=== PATIENT | male | born 1950 | race Caucasian/White ===

== ENCOUNTER → 2019-09-14 | Outpatient (CLI) | payer OTHER ==
[2019-09-14 11:16] LABS: PLATELET COUNT 219 x10^3mcL (130-400); RED CELL DISTRIBUTION WIDTH 13.2 % (11.5-14.5)
[2019-09-14 11:51] LABS: ALBUMIN 4.1 g/dL (3.4-5.0); ALKALINE PHOSPHATASE 115 U/L (46-116); ALT/SGPT 40 U/L (16-63); AST/SGOT 26 U/L (15-37); BILIRUBIN TOTAL 0.6 mg/dL (0.20-1.00); CALCIUM 8.2 mg/dL (8.5-10.1); CARBON DIOXIDE 26.5 mmol/L (21-32); CHLORIDE SERUM 105 mmol/L (98-107); CREATININE SERUM 1.2 mg/dL (0.7-1.3); GFR1 > 60 mL/min; GLUCOSE SERUM 107 mg/dL (74-106); POTASSIUM SERUM 4.1 mmol/L (3.5-5.1); SODIUM SERUM 140 mmol/L (136-145); TOTAL PROTEIN, SERUM 7.5 g/dL (6.4-8.2); TRIGLYCERIDES 54 mg/dL (<150)
[2019-09-14 11:52] LABS: CHOLESTEROL 125 mg/dL (<200); CHOLESTEROL/HDL RATIO 3.7; HDL CHOLESTEROL 34 mg/dL (40-60)
== END | disposition home or self-care (01) ==
LOC: LB 10:52
DX: E78.5 Hyperlipidemia, unspecified (principal)

== ENCOUNTER → 2020-03-14 | Outpatient (CLI) | payer OTHER | END | disposition home or self-care (01) | LOC: RD 11:19 | DX: S89.92XA Unspecified injury of left lower leg, initial encounter (principal); X58.XXXA Exposure to other specified factors, initial encounter; Y92.9 Unspecified place or not applicable ==

== ENCOUNTER → 2020-03-31 | Outpatient (CLI) | payer OTHER | END | disposition home or self-care (01) | LOC: MI 03-30 14:25 | PROC: BQ38ZZZ Magnetic Resonance Imaging (MRI) of Left Knee (ICD-10-PCS; principal; 2020-03-31) | PROC: BQ37ZZZ Magnetic Resonance Imaging (MRI) of Right Knee (ICD-10-PCS; 2020-03-31) | DX: M25.562 Pain in left knee (principal); M25.561 Pain in right knee ==

== ENCOUNTER → 2020-06-14 | Outpatient (CLI) | payer OTHER | END | disposition home or self-care (01) | LOC: LB 15:18 | DX: U07.1 COVID-19 (principal) | CPT/HCPCS: U0003 ==

== ENCOUNTER → 2020-09-20 | Outpatient (CLI) | payer OTHER ==
[2020-09-16 08:57] LABS: CALCIUM 9.4 mg/dL (8.5-10.1); CARBON DIOXIDE 20.6 mmol/L (21-32); CREATININE SERUM 1.3 mg/dL (0.7-1.3); POTASSIUM SERUM 4.2 mmol/L (3.5-5.1)
[2020-09-16 09:01] LABS: BILIRUBIN TOTAL 0.61 mg/dL (0.20-1.00); TOTAL PROTEIN, SERUM 7.4 g/dL (6.4-8.2)
== END | disposition home or self-care (01) ==
LOC: CT 08:00
PROVIDERS: ATTEND Surgery
PROC: BW211ZZ Computerized Tomography (CT Scan) of Abdomen and Pelvis using Low Osmolar Contrast (ICD-10-PCS; principal; 2020-09-20)
DX: K43.9 Ventral hernia without obstruction or gangrene (principal)
CPT/HCPCS: Q9967